=== PATIENT | female | born 1985 ===

== ENCOUNTER 2021-03-22 11:36 | Outpatient (CLI) | payer OTHER ==
[2021-03-22 19:17] LABS: SARS-CoV-2 PCR by NAA Not Detected (NotDetected)
== END 2021-03-22 11:37 | disposition home or self-care (01) ==
LOC: CSHLAB 11:36
PROVIDERS: ATTEND Obstetrics & Gynecology
DX: Z20.822 Contact with and (suspected) exposure to COVID-19 (principal)
CPT/HCPCS: 87635; U0003; U0005

== ENCOUNTER 2021-03-25 16:50 | Inpatient (IN) | payer OTHER ==
[~2021-03-25 16:50] MED LIST: Bupivacaine 0.25% HCL 30 ML VIAL ONE
[2021-03-25 17:28] VITALS: BMI 30.1
[2021-03-25] MEDS ORDERED: Fentanyl 4 mcg/Bup 0.1% Cadd 100 ML ONE (18:08)
[2021-03-25] MEDS ORDERED: hydrALAZINE 20 MG/ML VIAL SLOW IVP PRN ×2 (18:12→23:44)
[2021-03-25] MEDS ORDERED: Acetaminophen 500 MG TAB PO PRN (18:12)
[2021-03-25] MEDS ORDERED: Misoprostol 200 MCG TAB PR PRN (18:12)
[2021-03-25] MEDS ORDERED: Lidocaine 1% (PF) 30 ML VIAL SC PRN (18:12)
[2021-03-25] MEDS ORDERED: Zolpidem Tartrate 5 MG TAB PO PRN ×2 (18:12→23:44)
[2021-03-25] MEDS ORDERED: NS / Oxytocin 40 units/1000ml 1,000 ML IV PRN (18:12)
[2021-03-25] MEDS ORDERED: Ondansetron PF 4 MG/2 ML Vial IVP PRN ×2 (18:12→23:44)
[2021-03-25] MEDS ORDERED: Promethazine HCl 25 MG/ML VIAL IM PRN (18:12)
[2021-03-25] MEDS ORDERED: Ibuprofen 800 MG TAB PO PRN (18:12)
[2021-03-25] MEDS ORDERED: Butorphanol Tartrate 1 MG/ML VIAL SLOW IVP PRN (18:12)
[2021-03-25] MEDS ORDERED: HYDROcodone/Acetaminophen 5/325 mg Tablet PO PRN ×4 (18:12→23:44)
[2021-03-25] MEDS ORDERED: NS w/ Oxytocin 30 units 500 ML ONE (18:14)
[2021-03-25] MEDS ORDERED: Lactated Ringer's 1,000 ML IV SCH (18:15)
[2021-03-25] MEDS ORDERED: Fentanyl 100 MCG/2 ML VIAL ONE (18:27)
[2021-03-25 19:22] LABS: HBSAg Index 0.16 S/CO (0-0.99); Hemoglobin 12.7 g/dL (12.0-15.5); Hep B Surf Ag NonReactive S/CO (NonReactive); Mean Corpuscular HGB CONC 34.5 g/dL (32.0-36.0); Mean Corpuscular Hemoglobin 34.3 pg (27.0-33.0); Mean Corpuscular Volume 99.5 fl (81.6-98.3); Mean Platelet Volume 10.2 fl (7.4-10.4); Platelet Count 239 10x3/uL (150-450); RBC Distribution Width 12.5 % (11.5-14.5); White Blood Cell (WBC) Count 15.1 10x3/uL (3.5-10.5)
[2021-03-25 19:23] LABS: Syphilis Antibody Nonreactive (Nonreactive); Syphilis Antibody Index 0.01 S/CO (<1.00 Non-Reactive)
[2021-03-25] MEDS: NS w/ Oxytocin 30 units 500 ML IV SCH (23:35)
[2021-03-25] MEDS ORDERED: Milk Of Magnesia 30 ML UDCUP PO PRN (23:44)
[2021-03-25] MEDS ORDERED: diphenhydrAMINE 25 MG CAP PO PRN (23:44)
[2021-03-25] MEDS ORDERED: Preparation H Ointment 28 GM TUBE PR PRN (23:44)
[2021-03-25] MEDS ORDERED: Benzocaine-Menthol 82.5 ML CAN TOP PRN (23:44)
[2021-03-25] MEDS ORDERED: Bisacodyl 10 MG SUPP PR PRN (23:44)
[2021-03-25] MEDS ORDERED: Lanolin Ointment 7 GM TUBE TOP PRN (23:44)
[2021-03-25] MEDS ORDERED: Misoprostol 200 MCG TAB VAG PRN (23:44)
[2021-03-25] MEDS ORDERED: NS / Oxytocin 40 units/1000ml 1,000 ML IV SCH (23:45)
[2021-03-25] MEDS ORDERED: Witch Hazel-Glycerin 1 EACH JAR TOP PRN (23:46)
[2021-03-26] MEDS: NS w/ Oxytocin 30 units 500 ML IV SCH (03:55)
[2021-03-26] MEDS: Ibuprofen 800 MG TAB PO SCH ×3 (06:18→21:37)
[2021-03-26 06:24] LABS: Hemoglobin 11.4 g/dL (12.0-15.5); Mean Corpuscular HGB CONC 34.5 g/dL (32.0-36.0); Mean Corpuscular Hemoglobin 34.4 pg (27.0-33.0); Mean Corpuscular Volume 99.7 fl (81.6-98.3); Mean Platelet Volume 10.4 fl (7.4-10.4); Platelet Count 216 10x3/uL (150-450); RBC Distribution Width 12.5 % (11.5-14.5); Red Blood Cell (RBC) Count 3.31 10x6/uL (3.90-5.03); White Blood Cell (WBC) Count 17.5 10x3/uL (3.5-10.5)
[2021-03-26] MEDS ORDERED: Adacel (T-DAP) 0.5 ML SYRINGE IM ONE (09:00)
[2021-03-26] MEDS: Prenatal Vitamin 1 TAB PO SCH (10:14)
[2021-03-26] MEDS: Docusate Calcium (SURFAK) 240 MG CAP PO SCH ×2 (10:16→21:37)
[2021-03-26] MEDS: Ferrous Sulfate 325 MG TAB PO SCH ×2 (21:35→21:36)
[2021-03-27 00:21] VITALS: TEMP 98.1
[2021-03-27] MEDS: Ibuprofen 800 MG TAB PO SCH (05:57)
[2021-03-27] MEDS: Ferrous Sulfate 325 MG TAB PO SCH (07:53)
[2021-03-27 08:19] VITALS: BP 97/61
[2021-03-27] MEDS: Docusate Calcium (SURFAK) 240 MG CAP PO SCH (08:52)
[2021-03-27] MEDS: Prenatal Vitamin 1 TAB PO SCH (08:52)
== END 2021-03-27 12:10 | disposition home or self-care (01) | DRG 807 ==
LOC: CSHLD/OP 16:50 → CSHLD 19:18 → CSHPP 03-26 04:03
PROVIDERS: ADMIT Obstetrics & Gynecology; ATTEND Obstetrics & Gynecology
PROC: 10E0XZZ Delivery of Products of Conception, External Approach (ICD-10-PCS; principal; 2021-03-27)
PROC: 0KQM0ZZ Repair Perineum Muscle, Open Approach (ICD-10-PCS; 2021-03-27)
DX: O70.1 Second degree perineal laceration during delivery (principal); Z37.0 Single live birth; Z3A.39 39 weeks gestation of pregnancy
CPT/HCPCS: 36415; 51702; 85027; 85461; 86780; 86850; 86870; 86900; 86901; 86922; 87340; 87635; 90384; 96372; 99285; J2590; J3010; S0020; U0003; U0005